=== PATIENT | male | born 1930 | race Caucasian/White ===

== ENCOUNTER 2019-07-01 18:30 | Inpatient (IN) | payer OTHER, MEDICARE ==
[~2019-07-01] VITALS: Ht 188 cm; Wt 108.2 kg
[2019-07-01 18:30] VITALS: BP 140/59
[~2019-07-01 18:30] MED LIST: AMARYL2 MG PO; ASA81BEC PO; BACTRIM DS TAB1 EACH PO; CENTRUM SILVER1 EAC2 PO; CIPRO500 MG; COREG6.25 MG PO; DUONEB 2.5-0.5 M3 ML INH; ENOXAPARIN40 MG/0.1 SUBQ; FLOMAX0.4 MG PO; KEFLEX500 MG PO; LASIX 20 MG TAB20 MG PO; LEVAQUIN 500 M500 M2 PO; LIDOCAINE VISC100 M1 SWISH&SPIT; LISINOPRIL20 MG PO; MOBIC7.5 MG PO; NYSTATIN 1100000 U/M SW&SWALLOW; PINDOLOL10 MG PO; PROTONIX40 M1 PO
[2019-07-01 19:03] LABS: ABSOLUTE NEUTROPHILS 5.7 thou/uL (1.4-8.2); BASOPHILS 0.6 % (0.0-2.0); EOSINOPHILS 1.7 % (0.0-3.0); HEMATOCRIT 33.8 % (42.0-52.0); HEMOGLOBIN 11.2 gm/dL (14.0-18.0); MCH 32.1 pg (26.0-34.0); MCHC 33.2 g/dL (28.0-37.0); MCV 96.6 fL (80.0-100.0); MONOCYTES 7.4 % (1.0-8.0); PLATELET COUNT 208 thou/uL (150-400); POLYS 84.3 % (36.0-66.0); RDW 14.9 % (10.5-14.5); WBC 6.7 thou/uL (4.0-11.0)
[2019-07-01 19:11] LABS: URINE BILIRUBIN NEGATIVE (Negative); URINE BLOOD 3+ (Negative); URINE CLARITY SL CLOUDY; URINE COLOR YELLOW; URINE GLUCOSE-RANDOM* NEGATIVE (Negative); URINE KETONES NEGATIVE (Negative); URINE LEUKOCYTES-REFLEX NEGATIVE (Negative); URINE NITRITE-REFLEX NEGATIVE (Negative); URINE PROTEIN (DIPSTICK) TRACE (Negative); URINE UROBILINOGEN 0.2 E.U./dl (0.2-1.0)
[2019-07-01 19:19] LABS: CALCIUM 9.3 mg/dL (8.5-10.1); CREATININE 2.5 mg/dL (0.7-1.3); MAGNESIUM 1.9 mg/dL (1.8-2.4); POTASSIUM 5.5 mmol/L (3.5-5.1); TROPONIN-I 0.16 ng/mL (<0.06)
[2019-07-01 19:45] LABS: BACTERIA-REFLEX 1-9 Few /HPF (None Seen); CASTS None Seen /LPF (None Seen); CRYSTALS None Seen /LPF (None Seen); SQUAMOUS 0-3 Few /LPF (0-3); URINE RBC >20 Many /HPF (0-2)
[2019-07-01 19:46] LABS: URINE WBC-REFLEX None Seen /HPF (0-5)
[2019-07-01] MEDS ORDERED: PROAIR DIGIHAL90 MCG INH (19:51)
[2019-07-01] MEDS ORDERED: AUGMENTIN 875-1 EACH PO (19:52)
[2019-07-01 20:28] VITALS: BP 134/62
--- NOTE | 2019-07-01 20:29 | NUR ---
HAND OFF REPORT SENT TO CCU PRINTER AT THIS TIME.
[2019-07-01] MEDS ORDERED: MELATONIN5 MG PO (20:32)
[2019-07-01] MEDS ORDERED: TRIAMTERENE/HCT1 CA1 PO (20:33)
[2019-07-01 21:28] VITALS: BP 148/133
[2019-07-01 23:08] LABS: CHOLESTEROL 95 mg/dL (<200); HDL CHOLESTEROL 29 mg/dL (>40); LDL CHOLESTEROL 46 mg/dL (<100); SERUM ASSESSMENT Clear; TC:HDL 3.3 Ratio (Not establshd); TRIGLYCERIDE 103 mg/dL (<150); VLDL 21 mg/dL (<40)
[2019-07-02 00:47] VITALS: BP 121/50
[2019-07-02 03:44] LABS: POTASSIUM 4.9 mmol/L (3.5-5.1); TROPONIN-I 0.19 ng/mL (<0.06)
--- NOTE | 2019-07-02 04:51 | NUR ---
PT ARRIVED UNIT AT ABOUT 2140. PT A/OX4, VITAL SIGNS STABLE, ASSESSMENT CHARTED. PT COMPLAINED OF PAIN IN BACK, PAIN MEDICATION GIVEN WHICH SEEMED TO HELP. ADMISSION COMPLETED, ATTEMPTED TO PLACE [facility] FOR STRICT I/O, TO NO AVAIL. PT INCONTINENT. PTRESTED WELL FOR THE REST OF NIGHT. PROGRESSING TOWARD PLAN OF CARE. WILL CONTINUE TO MONITOR.
[2019-07-02 05:24] VITALS: BP 128/71
[2019-07-02 06:32] LABS: CALCIUM 9.1 mg/dL (8.5-10.1); CREATININE 2.5 mg/dL (0.7-1.3); POTASSIUM 5.1 mmol/L (3.5-5.1); TROPONIN-I 0.2 ng/mL (<0.06)
[2019-07-02 07:30] VITALS: BP 123/62
--- NOTE | 2019-07-02 11:28 | 2DMMODE ---
[facility] [address] [place] [address] 2 D/M-MODE ECHOCARDIOGRAM Name: ETTALAN TRINWAY Room #: 202-P ADM IN M.R.#: [id number] Admission: 07/01/19 Attend Phys: Shay Garcia, Discharge: Date of : [birth year] Report #: [id number] THIS REPORT FOR: //name// APPROVED REPORT Study performed: 07/02/2019 10:24:55 EXAM: Comprehensive 2D, Doppler, and color-flow Echocardiogram Patient Location: Bedside Room #: 202 Status: routine BSA: 2.41 HR: 56 bpm BP: 123/62 mmHg Other Information Study Quality: Adequate Technically limited study due to body habitus. Indications Congestive Heart Failure Dyspnea Elevated Troponin Fluid overload 2D Dimensions RVDd: 39.88 mm IVSd: 17.05 (7-11mm) LVOT Diam: 23.90 (18-24mm) LVDd: 54.22 mm PWd: 14.83 (7-11mm) Ascending Ao: 37.12 (22-36mm) LVDs: 44.73 (25-40mm) Aortic Root: 41.37 mm IVC: 19.00 mm Volumes Left Atrial Volume (Systole) Single Plane 4CH: 98.88 mL Single Plane 2CH: 91.39 mL LA ESV Index: 44.00 mL/m2 Aortic Valve AoV Peak Rashel.: 1.37 m/s AO Peak Gr.: 7.47 mmHg LVOT Max P.15 mmHg LVOT Max V: 0.54 m/s MARÍA Vmax: 1.76 cm2 [facility] [address] [place] [address] 2 D/M-MODE ECHOCARDIOGRAM Name[facility] Room #: 202-P [facility] IN .R.#: [id number] Admission: 07/01/19 Attend Phys: Shay Garcia, Discharge: Date of : [birth year] Report #: [id number] Mitral Valve E/A Ratio: 2.9 MV Decel. Time: 164.80 ms MV E Max Rashel.: 0.89 m/s MV A Rashel.: 0.31 m/s MV PHT: 47.79 ms IVRT: 92.27 ms Pulmonary Valve PV Peak Rashel.: 0.89 m/s PV Peak Gr.: 3.15 mmHg Pulmonary Vein P Vein S: 0.29 m/s P Vein D: 0.65 m/s P Vein S/D Ratio: 0.45 Tricuspid Valve TR Peak Rashel.: 3.21 m/s RAP Estimate: 10.00 mmHg TR Peak Gr.: 41.28 mmHg PA Pressure: 51.00 mmHg Left Ventricle The left ventricle is normal size. Moderate concentric left ventricular hypertrophy. Left ventricular systolic function is mildly decreased. LVEF is 45%. although endocardium poorly visualized Transmitral Doppler flow pattern suggests restrictive physiology. Right Ventricle Right ventricle is at the upper limits of normal. Right ventricle is moderately hypokinetic. Atria Left atrium is moderately dilated. Right atrium is mildly dilated. Aortic Valve Aortic valve is mildly calcified. Trace aortic regurgitation. There is no aortic valvular stenosis. Mitral Valve Mild mitral annular calcification. Mild mitral regurgitation. No evidence of mitral valve stenosis. Tricuspid Valve The tricuspid valve is normal in structure. Mild tricuspid [facility] [address] [place] [address] 2 D/M-MODE ECHOCARDIOGRAM Name: ETTALAN TRINWAY Room #: 202-P ADM IN M.R.#: [id number] Admission: 07/01/19 Attend Phys: Shay Garcia, Discharge: Date of : [birth year] Report #: [id number] regurgitation. PAP is estimated at 51 mmHg. Pulmonic Valve The pulmonary valve is normal in structure. Trace pulmonic regurgitation. Great Vessels Aortic root is mildly dilated at 4.1 cm. Ascending aorta is normal in caliber. Aortic arch is not well visualized. IVC is normal in size and collapses <50% with inspiration. Pericardium There is no pericardial effusion. <Conclusion> The left ventricle is normal size. LVEF is 45%. although endocardium poorly visualized Right ventricle is at the upper limits of normal. Right ventricle is moderately hypokinetic. Left atrium is moderately dilated. Right atrium is mildly dilated. Aortic valve is mildly calcified. Trace aortic regurgitation. Mild mitral annular calcification. Mild mitral regurgitation. The tricuspid valve is normal in structure. Mild tricuspid regurgitation. PAP is estimated at 51 mmHg. The pulmonary valve is normal in structure. Trace pulmonic regurgitation. Aortic root is mildly dilated at 4.1 cm. There is no pericardial effusion. <ELECTRONICALLY SIGNED> By: Damian Odonnell MD 07/02/19 1127 [id number] 112 Damian Odonnell MD /INF
[2019-07-02 11:34] VITALS: BP 154/61
--- NOTE | 2019-07-02 13:09 | NUR ---
met with patient who reports he resides at home with spouse. He reports all needs on one level in home. He uses a walker in home and community. Patient does not drive his drives. He reports she will be arriving at hospital some time today. patient reports he believed his wants him to transfer for post acute care. He has been at [facility] in past. Patient reports casemgt needs to discuss with his . Left message with on home phone and her cell phone.
--- NOTE | 2019-07-02 13:57 | NUR ---
Sp with at bedside. She is aware therapy unable to work with patient today due to heart rate. Interest in [facility] for post acute care. Sent referral for review.
--- NOTE | 2019-07-02 15:37 | NUR ---
FAXED REFERRAL TO [facility] SPOKE WITH MARIXA IN ADM SHE RECEIVED REFERRAL AND WILL REVIEW. DP TO FOLLOW.
[2019-07-02 17:06] VITALS: BP 147/90
--- NOTE | 2019-07-02 17:39 | NUR ---
ASSUMED CARE OF PT AT SHIFT CHANGE. ASSESSMENTS CHARTED. MEDS GIVEN PER SEP. VSS. PT A&OX4. LOW BLOOD SUGARS TREATED WITH APPLE JUICE SUCCESSFULLY. PT IS INCONTINENT. US AND ECHOS COMKELLI TODAY. DID NOT WORK WITH PT TODAY D/T INCREASED WEAKNESS IN MOVING FROM BSC TO BED WITH NURSES. WILL CONTINUE TO MONITOR AND FOLLOW POC.
[2019-07-02 19:46] VITALS: BP 148/82
[2019-07-03 03:41] VITALS: BP 137/72
--- NOTE | 2019-07-03 04:19 | NUR ---
PT ALERT AND ORIENTED. DENIES PAIN. INCONTINENT OF BOTH BOWEL AND URINE. Q2 TURNS AND REQUESTED. VITALS STABLE. DENIES, N/V, AND CHEST PAIN. LE ELEVATED ON PILLOW DUE TO EDEMA. WILL CONTINUE TO MONITOR.
[2019-07-03 06:02] LABS: ALBUMIN 3.3 g/dL (3.4-5.0); CALCIUM 8.9 mg/dL (8.5-10.1); CREATININE 2.4 mg/dL (0.7-1.3); PHOSPHORUS 4.6 mg/dL (2.5-4.9)
[2019-07-03 07:30] VITALS: BP 147/74
--- NOTE | 2019-07-03 09:47 | EKG ---
[address] [address] ELECTROCARDIOGRAM REPORT Name: LAN QUILES Room #: 202-P ADM IN M.R.#: [id number] Admission: 07/01/19 Attend Phys: Neal Nunez Discharge: Date of : [birth year] Report #: [id number] THIS REPORT FOR: //name// [facility] ED Test Date: 2019-07-01 Test Time: 18:38:34 Pat Name: LAN QUILES Department: Room: 202 P Gender: M Home Care Companion: KELSY : 1930 Requested By: Shay Garcia Order Number: [id number] MD: Logan French Measurements Intervals [place] Rate: 62 P: [place]: QRS: -66 QRSD: 134 T: 88 QT: 431 QTc: 438 Interpretive Statements Atrial fibrillation Left bundle branch block Compared to ECG 08/02/2016 11:41:27 Left bundle-branch block now present Electronically Signed On 07-03-2019 9:46:46 RN NEW GRAD by Logan French [email or web address] <ELECTRONICALLY SIGNED> By: Logan French MD, [facility] 07/03/19 0946 [id number] 37 Logan French MD, [facility] /EPI
[2019-07-03 11:55] VITALS: BP 141/59
[2019-07-03 16:22] VITALS: BP 140/60
--- NOTE | 2019-07-03 16:26 | NUR ---
patient to not dc until possibly . [facility] has a bed avail for patient on . 5N also following and possibly have a bed avail on . Casemgt on to f/u.
--- NOTE | 2019-07-03 17:41 | NUR ---
pt resting in bed, incontinent of urine, attempted external condom cath but unsuccessful, pt dribbles with each change of position, clean/dry towel applied to sharon area to help cath urine, barrier cream applied to area, will continue to monitor, clean up, and keep dry
[2019-07-03 19:26] VITALS: BP 122/54
[2019-07-04 04:12] VITALS: BP 133/62
[2019-07-04 06:01] LABS: ALBUMIN 3.1 g/dL (3.4-5.0); CALCIUM 8.4 mg/dL (8.5-10.1); CREATININE 2.4 mg/dL (0.7-1.3); PHOSPHORUS 3.9 mg/dL (2.5-4.9); POTASSIUM 4.3 mmol/L (3.5-5.1)
[2019-07-04 07:30] VITALS: BP 137/55
--- NOTE | 2019-07-04 08:58 | NUR ---
ASSUME CARE 1900. PT/VITALS STABLE. INTERMITTENT BACK PAIN. TYLENOL FOR RELIEF. POOR TOLERANCE TO ACTIVITY. INCONTINENT OF URINE AND BOWEL. ADEQUATE URINE OUTPUT NOTED. PROGRESSING SLOWLY WITH POC. REHAB CONSULTED. PLAN IS FOR REHAB EVAL AND POSSIBLE DISCHARGE TO REHAB WITHIN A FEW DAY. WILL CONTINUE TO MONITOR
[2019-07-04 12:00] VITALS: BP 138/63
[2019-07-04 12:20] VITALS: BP 132/49
[2019-07-04 16:30] VITALS: BP 142/80
--- NOTE | 2019-07-04 16:34 | NUR ---
ASSUMED CARE OF PATIENT AT 0700. ASSESSMENT COMPLETED. TELE STRIPS PRINTED AND PLACED IN CHART. ACCUCHECK AC&HS. PATIENT IS INCONTINENT OF BOTH BOWEL AND BLADDER. [place] [facility] [place] BUT WAS SUPRISINGLY STRONG. PATIENT'S AND DAUGHTER AT THE BEDSIDE. PATIENT TAKING IV ABX. PATIENT'S IV INFILTRATED AND NEW ONE PLACED AT RIGHT FA. PATIENT IS ANTICIATING TRANSFER TO REHAB FACILITY TOMORROW. PATIENT TO CONTINUE WITH POC.
[2019-07-04 20:15] VITALS: BP 126/86
[2019-07-05 04:45] VITALS: BP 137/67
[2019-07-05 05:34] LABS: CALCIUM 8.6 mg/dL (8.5-10.1); CREATININE 2.3 mg/dL (0.7-1.3); POTASSIUM 4.5 mmol/L (3.5-5.1)
--- NOTE | 2019-07-05 07:21 | NUR ---
ASSUMED PT CARE AT 1900. VSS. PT A&0X4. PT RESTED WELL ALL NOC. TURNS DONE PRN. COMPLAINED OF BACK PAIN ONCE, TYLENOL GIVEN. FEMALE EXTERNAL CATH ON PT. PT IS STABLE, WILL CONTINUE TO MONITOR PER POC.
[2019-07-05 08:05] VITALS: BP 140/66
[2019-07-05] MEDS ORDERED: LASIX 40 MG TAB40 MG PO (08:39)
[2019-07-05] MEDS ORDERED: POTASSIUM20 PO (08:39)
[2019-07-05] MEDS ORDERED: CEFUROXIME250 MG PO (08:42)
--- NOTE | 2019-07-05 09:35 | NUR ---
Pt dcing to SNF at [facility] this morning. 11am w/c van transport arranged per the facility. Pt updated at bedside and via phone. Care team updated. Chart copy in progress. Nursing to call report. Pt to be skilled for therapy. Case closed.
--- NOTE | 2019-07-05 10:12 | NUR ---
FAXED DC ORDERS/SUMMARY TO [facility] RECEIVED CONFIRMATION AND SPOKE WITH MARIXA IN ADM SHE ARRANGED TRANSPORT FOR 1100.
[2019-07-05 11:20] VITALS: BP 130/68
--- NOTE | 2019-07-05 11:30 | NUR ---
PT CARE ASSUMED APPROX 0700. PT ASSESSMENT CHARTED. DENIES PAIN AND SOA. VSS. UP WITH P/T THIS AM AND P/T REPORTED THAT PT WAS 1 PERSON MIN ASSIST AND PT EVEN AMBULATED. PT WAS PLACED TO CHAIR AFTER P/T AMBULATED PT BY P/T. PT WAS APPROVED FOR DISCHARGE EARLIER THIS SHIFT. WHEN NURSE ATTEMPTED TO TRANSFER PT TO WHEELCHAIR FOR DISCHARGE PT KNEES GOT SHAKY AND PT ATTEMPTED TO SIT BACK DOWN BUT HAS ALREADY MOVED TOO FAR FROM CHAIR. PT WAS ASSISTED TO THE FLOOR. ASSIST TO FLOOR WITNESSED BUT TRANSPORTATION STAFF. NO INJURY SUSTAINED. VSS. DR VILLALPANDO APPROVED PT FOR DISCHARGE STILL. PT TRANSPORTED OFF UNIT AT THIS TIME. IV OUT, TELE BOX OFF. PT AGREEABLE TO STILL LEAVE REPORTING THAT HE FEELS FINE "JUST A LITTLE WEAK." RECEIVING NURSE UPDATED POST PT ASSIST TO FLOOR. TO
== END 2019-07-05 11:36 | DRG 682 ==
LOC: ER 18:30 → 2N 19:50 → EROBS 19:50 → 2N 21:14
PROVIDERS: Emergency Medicine; Nurse Practitioner Acute Care; ADMIT Hospitalist
DX: N17.9 Acute kidney failure, unspecified (principal); I50.21 Acute systolic (congestive) heart failure; I13.0 Hypertensive heart and chronic kidney disease with heart failure and stage 1 through stage 4 chronic kidney disease, or unspecified chronic kidney disease; L03.116 Cellulitis of left lower limb; I48.20 Chronic atrial fibrillation, unspecified; Z96.653 Presence of artificial knee joint, bilateral; E87.5 Hyperkalemia; R00.1 Bradycardia, unspecified; R47.81 Slurred speech; E11.22 Type 2 diabetes mellitus with diabetic chronic kidney disease; N18.9 Chronic kidney disease, unspecified; G47.00 Insomnia, unspecified; R29.6 Repeated falls; Z87.01 Personal history of pneumonia (recurrent); Z79.01 Long term (current) use of anticoagulants; Z98.42 Cataract extraction status, left eye; Z98.41 Cataract extraction status, right eye; Z90.89 Acquired absence of other organs; Z87.442 Personal history of urinary calculi; Z79.82 Long term (current) use of aspirin; Z79.899 Other long term (current) drug therapy; Z88.1 Allergy status to other antibiotic agents; Z87.891 Personal history of nicotine dependence
CPT/HCPCS: 10081

== ENCOUNTER 2019-07-25 15:29 | Emergency (ER) | payer OTHER, MEDICARE ==
[~2019-07-25] VITALS: Ht 167.6 cm; Wt 114.3 kg
[~2019-07-25 15:29] MED LIST changes: +AUGMENTIN 875-1 EACH PO; +CEFUROXIME250 MG PO; +LASIX 40 MG TAB40 MG PO; +MELATONIN5 MG PO; +POTASSIUM20 PO; +PROAIR DIGIHAL90 MCG INH; +TRIAMTERENE/HCT1 CA1 PO
[2019-07-25 15:31] VITALS: BP 151/68
[2019-07-25 16:10] LABS: HEMATOCRIT 33.8 % (42.0-52.0); HEMOGLOBIN 11.4 gm/dL (14.0-18.0); MCHC 33.8 g/dL (28.0-37.0); MCV 94.7 fL (80.0-100.0); PLATELET COUNT 215 thou/uL (150-400); RBC 3.58 mil/uL (4.50-6.00); RDW 14.4 % (10.5-14.5); WBC 6.5 thou/uL (4.0-11.0)
[2019-07-25 16:46] LABS: PLATELET ESTIMATE NORMAL
[2019-07-25 16:53] LABS: CALCIUM 9.7 mg/dL (8.5-10.1); CREATININE 4.5 mg/dL (0.7-1.3); POTASSIUM 5.8 mmol/L (3.5-5.1)
[2019-07-25 17:00] LABS: ALBUMIN 3.3 g/dL (3.4-5.0); TOTAL BILIRUBIN 0.3 mg/dL (<0.1-1.0); TOTAL PROTEIN 7.4 g/dL (6.4-8.2)
--- NOTE | 2019-07-25 21:22 | NUR ---
[facility] CALLED. REPORT WAS GIVEN.
[2019-07-25 22:26] VITALS: BP 131/72
--- NOTE | 2019-07-26 08:40 | EKG ---
[address] [place] [address] ELECTROCARDIOGRAM REPORT Name: LAN QUILES [id number] Admission: 07/25/19 Attend Phys: Discharge: 07/25/19 Date of : [birth year] Report #: [id number] THIS REPORT FOR: //name// [facility] ED Test Date: 2019-07-25 Test Time: 17:21:35 Pat Name: LAN QUILES Department: Room: 170 Gender: M Cash Controller: : 1930 Requested By: Rudy Conway Order Number: [id number] MD: Logan French Measurements Intervals [place] Rate: 61 P: PA: QRS: -71 QRSD: 142 T: 75 QT: 454 QTc: 458 Interpretive Statements Atrial fibrillation Left bundle branch block Compared to ECG 07/01/2019 18:38:34 No significant changes Electronically Signed On 07-26-2019 8:39:39 [employer] by Logan French [email or web address] <ELECTRONICALLY SIGNED> By: Logan French MD, [facility] 07/26/19 0839 1721 1721 Logan French MD, [facility] /EPI
== END 2019-07-25 22:26 | disposition still patient (30) ==
LOC: ER 15:29 → EROBS 17:35 → ER 17:35 → EROBS 22:26
PROVIDERS: Emergency Medicine
DX: N17.9 Acute kidney failure, unspecified (principal); E87.5 Hyperkalemia; I48.91 Unspecified atrial fibrillation; I10 Essential (primary) hypertension; E11.9 Type 2 diabetes mellitus without complications; Z87.442 Personal history of urinary calculi; Z96.653 Presence of artificial knee joint, bilateral; Z88.1 Allergy status to other antibiotic agents